=== PATIENT | female | born 1985 | race Caucasian/White ===

== ENCOUNTER 2023-02-26 20:24 | Emergency (ER) | payer OTHER ==
[2023-02-26] MEDS ORDERED: CHERRY SYRUP 10 ML UDC PO ONE (20:58)
[2023-02-26] MEDS ORDERED: DEXAMETHASONE 10 MG/ML VIAL PO STA (20:58)
[2023-02-26 21:14] LABS: RAPID STREP SCREEN Negative (Negative)
--- NOTE | 2023-02-26 21:15 | ED Physician Documentation ---
History of Present Illness - Stated complaint Stated Complaint: SORE THROAT - Chief complaint Chief Complaint: Heent - Additonal information Additional information: 37-year-old female presents emergency department for evaluation of a sore throat that is been present now for more than a month. It initially followed a head cold. She has been to an urgent care provider and did receive a prescription for Augmentin. She states that she has a constant sore throat though no fevers or dysphonia. She has been using Zyrtec daily for allergy symptoms. She has tried Sudafed without relief. She states the sore throat is sometimes worse at night though not necessarily when supine. No nocturnal coughing was noted. 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 Patient's is active [employer]. She does not have a PCP Review of Systems Constitutional: denies: Fever, Chills Ears: reports: Ear pain Nose: reports: Congestion Throat: reports: Sore throat Cardiac: reports: Reviewed and negative Respiratory: reports: Reviewed and negative GI: reports: Reviewed and negative : reports: Reviewed and negative PD PAST MEDICAL HISTORY - Allergies Allergies/Adverse Reactions: Allergies Allergy/AdvReac Type Severity Reaction Status Date / Time No Known Drug Allergies Allergy Verified 02/26/23 20:38 PD ED PE NORMAL - General General: Alert and oriented X 3, No acute distress, Well developed/nourished - HEENT HEENT: Atraumatic, Ears normal (No effusions noted), Moist mucous membranes, Pharynx benign (Unremarkable posterior oropharynx without exudate or erythema. Uvula is midline. No soft palate asymmetry or swelling. Normal phonation. Normal swallow), Other (No frontal or maxillary sinus tenderness elicited on exam. No fevers. 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 Initially began after a URI. She has seen an urgent care provider and completed a course of Augmentin. Pain is typically worse at night though not necessarily when supine. Denies waking up with tussive episodes. On exam she has a benign appearing posterior oropharynx without erythema or exudate. Nothing to suggest RPA or ULTRASOUND SPEC. A rapid strep today is negative. Cultures pending. We will defer antibiotics unless positive. However given the duration of subacute symptoms now for a month I discussed with patient the most likely etiology would be chronic postnasal drip or even silent acid reflux. I making the recommendation for her to use saline nasal rinses each day in the shower followed by Flonase. Continue daily Zyrtec. She may also benefit from the use of an [id number] PPI or H2 traci such as omeprazole or Pepcid. Patient will attempt to schedule with PCP. If not markedly better with these measures would then consider a second course of antibiotics though given lack of fever or significant sinus tenderness on exam today I feel that that should be deferred Departure - Departure Disposition: 01 Home, Self Care Clinical Impression: Sore throat Condition: Stable Record reviewed to determine appropriate education?: Yes Comments: Isabella barrera came to the emergency department because you have had a sore throat now for over a month. You have completed a course of Augmentin. Your rapid strep today is negative. We are sending it for culture. We will notify you if the culture is positive and at that point will prescribe some antibiotics. You also have a respiratory viral panel to pending we will notify you only if there are positive results. As discussed at the bedside the most common cause of subacute sore throat is postnasal drip due to congestion or silent acid reflux I do recommend that you begin taking a daily antacid such as omeprazole or Protonix. In order to address some postnasal drip or congestion that could be contributing to your symptoms I recommend you continue the Zyrtec but I would like you to do daily saline nasal sprays (neti-pot nasal rinse) Do these in the shower. Once you do the saline nasal rinses in the shower inhale Flonase nasal spray into each nostril. The Flonase will not be effective if you are congested as it will simply inject the medicine and does not and not actually act on the tissue itself. We did give you a single dose of Decadron today in the emergency department which I hope will help with pain and inflammation over the next several days while you allow the saline and Flonase to start working If these treatment regimens do not improve your symptoms you would benefit from referral to an ear nose throat doctor for further longer-term evaluation.
[2023-02-26 21:44] VITALS: BP 148/94
[2023-02-26 21:59] LABS: B. PARAPERTUSSIS- RESP PCR PAN NOT DETECTED; B. PERTUSSIS- RESP PCR PANEL NOT DETECTED; C. PNEUMONIAE- RESP PCR PANEL NOT DETECTED; CORONAVIRUS 229E-RESP PCR NOT DETECTED; CORONAVIRUS HKU1-RESP PCR NOT DETECTED; CORONAVIRUS NL63-RESP PCR NOT DETECTED; CORONAVIRUS OC43-RESP PCR NOT DETECTED; HUMAN METAPNEUMOVIRUS NOT DETECTED; INFLUENZA A- RESP PCR PANEL NOT DETECTED; INFLUENZA B - RESP PCR PANEL NOT DETECTED; M. PNEUMONIAE- RESP PCR PANEL NOT DETECTED; PARAINFLUENZA VIRUS 1 NOT DETECTED; PARAINFLUENZA VIRUS 2 NOT DETECTED; PARAINFLUENZA VIRUS 3 NOT DETECTED; PARAINFLUENZA VIRUS 4 NOT DETECTED; RHINOVIRUS/ENTEROVIRUS DETECTED; RSV- RESP PCR PANEL NOT DETECTED; SARS-CoV-2 -RESP PCR PANEL NOT DETECTED
== END 2023-02-26 21:43 | disposition home or self-care (01) ==
LOC: ED 20:24
DX: R07.0 Pain in throat (principal); Z20.822 Contact with and (suspected) exposure to COVID-19
CPT/HCPCS: 87070; 87430; 87633; 99283; A9270

== ENCOUNTER 2023-03-09 03:48 | Emergency (ER) | payer OTHER ==
[2023-03-09 04:26] LABS: RAPID STREP SCREEN POSITIVE (Negative)
[2023-03-09] MEDS ORDERED: PENICILLIN VK 250 MG TABLET PO STA (04:32)
--- NOTE | 2023-03-09 04:32 | ED Physician Documentation ---
PD HPI URI - Stated complaint Stated Complaint: sore throat - Chief complaint Chief Complaint: General - History obtained from History obtained from: Patient - Additional information Additional information: Patient is a 37-year-old female presenting for evaluation of a sore throat that is been present for 1 month. She was initially seen at a walk-in clinic with a negative rapid strep but was given a course of Augmentin for 7 days. Patient states having a history of untreated strep in the past leading to rheumatic fever requiring years of penicillin treatment. She was seen in our emergency department on February 26 due to persistent Symptoms with a negative rapid strep and culture. She is awaiting an appointment with her PCP on March 23 but is presented tonight due to persistent symptoms. She denies fever. She reports having a cough and feeling congestion. Her symptoms are worse at night. No vomiting or diarrhea, chest pain or shortness of breath. Review of Systems Constitutional: denies: Fever Nose: reports: Congestion Throat: reports: Sore throat Respiratory: reports: Cough GI: denies: Vomiting PD PAST MEDICAL HISTORY - Past Medical History Past Medical History: No - Past Surgical History Past Surgical History: No - Present Medications Home Medications: Ambulatory Orders Medication Instructions Recorded Confirmed Penicillin V Potassium 500 mg PO BID 10 Days #20 tablet 03/09/23 - Allergies Allergies/Adverse Reactions: Allergies Allergy/AdvReac Type Severity Reaction Status Date / Time No Known Drug Allergies Allergy Verified 02/26/23 20:38 - Social History Does the pt smoke?: No Smoking Status: Never smoker Does the pt drink ETOH?: No Does the pt have substance abuse?: No - Immunizations Immunizations are current?: Yes - POLST Patient has POLST: No PD ED PE NORMAL - General General: Alert and oriented X 3, No acute distress, Well developed/nourished - HEENT HEENT: Atraumatic, Moist mucous membranes, Pharynx benign (No signs of peritonsillar abscess, no exudate) - Neck Neck: Supple, no meningeal sign - Cardiac Cardiac: RRR, No murmur - Respiratory Respiratory: No respiratory distress, Clear bilaterally - Abdomen Abdomen: Soft, Non tender - Derm Derm: No rash - Neuro Neuro: Normal speech Results - Vitals Vitals: Vital Signs - 24 hr 03/09/23 03:56 Temperature 36.8 C Heart Rate 81 Respiratory 16 Rate Blood Pressure 167/89 H O2 Saturation 99 Oxygen O2 Source Room air PD Medical Decision Making - ED course Complexity details: reviewed results, d/w patient ED course: Patient presenting for evaluation of sore throat that has been present for 1 month with prior visits to urgent care and emergency department with negative strep test. She has a prior history of rheumatic fever from untreated strep infection. She did complete a 7-day course of Augmentin without any improvement. She is afebrile with stable vital signs. No signs of peritonsillar abscess or deep space infection. Rapid strep was repeated and is positive. We were otherwise planning on doing a throat culture To rule out other causes of her sore throat but as a strep test is positive we will plan on treatment. Patient is agreeable to 10-day course of penicillin. She is instructed on need for close follow-up with her PCP and would benefit from an ENT referral. She is counseled on concerning symptoms to return for. Departure - Departure Disposition: 01 Home, Self Care Clinical Impression: Strep pharyngitis Condition: Stable Instructions: ED Strep Pharyngitis Conf Prescriptions: Penicillin V Potassium 500 mg PO BID 10 Days #20 tablet Comments: Your strep test is positive. I am starting you on an antibiotic for course of 10 days. I would still recommend close follow-up with your primary care provider and would recommend a referral to ENT given your history. I have sent a prescription to [facility] in [place]. Please make sure you complete the course of the antibiotics. Please return to the emergency department if you develop any worsening symptoms.
[2023-03-09 04:42] VITALS: BP 152/84
== END 2023-03-09 04:42 | disposition home or self-care (01) ==
LOC: ED 03:48
DX: J02.0 Streptococcal pharyngitis (principal)
CPT/HCPCS: 87430; 99283; A9270; 87070

== ENCOUNTER 2023-05-27 18:40 | Outpatient (CLI) | payer OTHER | END 2023-05-27 23:59 | disposition EMS.NT | LOC: EMS 18:40 | DX: R07.81 Pleurodynia (principal) ==

== ENCOUNTER 2023-05-28 09:17 | Outpatient (CLI) | payer OTHER | END 2023-05-28 23:59 | disposition EMS.NT | LOC: EMS 09:17 | DX: R10.11 Right upper quadrant pain (principal) ==